=== PATIENT | male | born 1970 | race Asian ===

== ENCOUNTER 2016-07-06 08:00 | Outpatient (CLI) | payer MEDICAID | END 2016-07-06 23:59 | disposition home or self-care (01) | DX: B89 Unspecified parasitic disease (principal) ==

== ENCOUNTER 2018-09-17 08:21 | Outpatient (CLI) | payer OTHER ==
[2018-09-17 10:39] LABS: ALBUMIN 4.4 g/dL (3.2-5.5); ALBUMIN/GLOBULIN RATIO 1.5 (1.0-2.2); ALKALINE PHOSPHATASE 56 IU/L (42-121); ALT ALANINE AMINOTRANSFERASE 16 IU/L (10-60); AST ASPARTATE AMINOTRANSFERASE 16 IU/L (10-42); BILIRUBIN,TOTAL 0.7 mg/dL (0.2-1.0); BUN - BLOOD UREA NITROGEN 17 mg/dL (6-20); CALCIUM 9.5 mg/dL (8.5-10.3); CARBON DIOXIDE - CO2 30 mmol/L (21-32); CHLORIDE 101 mmol/L (101-111); CHOL/HDL RATIO 5.8 (<5.0); CHOLESTEROL 268 mg/dL; CREATININE 1.3 mg/dL (0.6-1.2); GFR - MDRD 59 (>89); GLUCOSE 98 mg/dL (70-100); HDL CHOLESTEROL 46 mg/dL; LDL CHOLESTEROL,CALCULATED 177 mg/dL; LDL/HDL RATIO 3.8 (<3.6); SODIUM 141 mmol/L (135-145); TOTAL PROTEIN 7.3 g/dL (6.7-8.2); VLDL CHOLESTEROL 45 mg/dL
== END 2018-09-17 08:22 | disposition home or self-care (01) ==
LOC: LAB.F 08:21
PROVIDERS: ATTEND Internal Medicine
DX: E78.5 Hyperlipidemia, unspecified (principal); F32.9 Major depressive disorder, single episode, unspecified
CPT/HCPCS: 36415; 80053; 80061; 83721; 84443

== ENCOUNTER 2019-05-27 12:06 | Emergency (ER) | payer MEDICAID, OTHER ==
[2019-05-27 12:30] LABS: BASOPHILS % (AUTO) 0.6 %; EOSINOPHILS # (AUTO) 0.1 10^3/uL (0.0-0.7); EOSINOPHILS % (AUTO) 1.1 %; HGB - HEMOGLOBIN 13.7 g/dL (14.0-18.0); LYMPHOCYTES # (AUTO) 1.4 10^3/uL (1.5-3.5); LYMPHOCYTES % (AUTO) 26.2 %; MEAN CORPUSCULAR HEMOGLOBIN 31.1 pg (27.0-31.0); MEAN CORPUSCULAR HGB CONC 33.5 g/dL (32.0-36.0); MONOCYTES # (AUTO) 0.4 10^3/uL (0.0-1.0); MONOCYTES % (AUTO) 7.2 %; NEUTROPHILS # (AUTO) 3.5 10^3/uL (1.5-6.6); NEUTROPHILS % (AUTO) 64.7 %; PLT - PLATELET COUNT 202 10^3/uL (130-450); RED CELL DISTRIBUTION WIDTH 12.2 % (12.0-15.0); WHITE BLOOD COUNT 5.4 x10^3/uL (4.8-10.8)
[2019-05-27 12:43] LABS: ALBUMIN 4.3 g/dL (3.2-5.5); ALBUMIN/GLOBULIN RATIO 1.7 (1.0-2.2); BILIRUBIN,TOTAL 0.7 mg/dL (0.2-1.0); CALCIUM 9.4 mg/dL (8.5-10.3); CREATININE 1.1 mg/dL (0.6-1.2); TOTAL PROTEIN 6.9 g/dL (6.7-8.2)
--- NOTE | 2019-05-27 13:30 | ED Physician Documentation ---
History of Present Illness - Stated complaint Stated Complaint: ABD PX - Chief complaint Chief Complaint: Abd Pain - History obtained from History obtained from: Patient - History of Present Illness Timing: Chronic Pain level max: 0 Pain level now: 0 - Additonal information Additional information: 48-year-old male states that he has had an umbilical hernia for "quite some time". He states that Last night the area became swollen and unable to reduce. This lasted for about 2 hours. No vomiting. He is asymptomatic now. The hernia has self reduced. Nothing makes it better or worse Review of Systems Constitutional: denies: Fever, Chills GI: denies: Vomiting, Diarrhea, Hematemesis, Bloody / black stool Skin: denies: Rash Musculoskeletal: denies: Neck pain, Back pain Neurologic: denies: Headache PD PAST MEDICAL HISTORY - Past Medical History Past Medical History: No - Past Surgical History Past Surgical History: No - Allergies Allergies/Adverse Reactions: Allergies Allergy/AdvReac Type Severity Reaction Status Date / Time No Known Drug Allergies Allergy Verified 05/27/19 12:11 - Social History Does the pt smoke?: No Smoking Status: Never smoker Does the pt drink ETOH?: Yes Does the pt have substance abuse?: No - POLST Patient has POLST: No PD ED PE NORMAL - Vitals Vital signs reviewed: Yes - General General: Alert and oriented X 3, No acute distress - HEENT HEENT: Moist mucous membranes - Neck Neck: Supple, no meningeal sign - Cardiac Cardiac: RRR - Respiratory Respiratory: No respiratory distress, Clear bilaterally - Abdomen Abdomen: Soft, Non tender, Non distended, Other (Small umbilical hernia, easily reducible) - Derm Derm: Warm and dry - Neuro Neuro: Alert and oriented X 3 - Psych Psych: Normal mood, Normal affect Results - Vitals Vitals: Vital Signs - 24 hr 05/27/19 12:11 Temperature 36.5 C Heart Rate 69 Respiratory 14 Rate Blood Pressure 136/74 H O2 Saturation 100 Oxygen O2 Source Room air - Labs Labs: Laboratory Tests 05/27/19 05/27/19 12:27 12:27 WBC 5.4 RBC 4.40 L Hgb 13.7 L Hct 40.9 L MCV 93.0 MCH 31.1 H MCHC 33.5 RDW 12.2 Plt Count 202 MPV 9.0 Neut # (Auto) 3.5 Lymph # (Auto) 1.4 L Woods # (Auto) 0.4 Eos # (Auto) 0.1 Baso # (Auto) 0.0 Absolute Nucleated RBC 0.00 Nucleated RBC % 0.0 Sodium 140 Potassium 3.9 Chloride 101 Carbon Dioxide 29 Anion Gap 10.0 BUN 20 Creatinine 1.1 Estimated GFR (MDRD) 72 L Glucose 94 Calcium 9.4 Total Bilirubin 0.7 AST 18 ALT 22 Alkaline Phosphatase 70 Total Protein 6.9 Albumin 4.3 Globulin 2.6 Albumin/Globulin Ratio 1.7 Lipase 26 PD MEDICAL DECISION MAKING - ED course Complexity details: considered differential, d/w patient ED course: Patient with a small umbilical hernia. Currently not incarcerated. We will have him follow-up with surgery to discuss operative repair. Patient is a symptomatic. Patient counseled regarding signs and symptoms for which I believe and urgent re-evaluation would be necessary. Patient with good understanding of and agreement to plan and is comfortable going home at this time This document was made in part using voice recognition software. While efforts are made to proofread this document, sound alike and grammatical errors may occur. Departure - Departure Disposition: 01 Home, Self Care Clinical Impression: Umbilical hernia Qualifiers: Obstruction and gangrene presence: without obstruction or gangrene Qualified Code(s): K42.9 - Umbilical hernia without obstruction or gangrene Condition: Good Instructions: Hernia Follow-Up: Gaby Rahman ND [Primary Care Provider] - Garfield Anderson MD [Credentialed Staff Provider] - Abran Givens MD [Provider Admit Priv/Credential] - Comments: You have an umbilical hernia. Return if you worsen including worsening pain or the hernia does not go back in on its own. Return especially for vomiting as well. Follow-up with the surgeon to discuss operative repair.
[2019-05-27 13:35] LABS: BILIRUBIN,URINE NEGATIVE (NEGATIVE); GLUCOSE, URINE (UA) NEGATIVE (NEGATIVE); KETONES,URINE (UA) TRACE mg/dL (NEGATIVE); LEUKOCYTE ESTERASE, URINE NEGATIVE (NEGATIVE); NITRITE,URINE NEGATIVE (NEGATIVE); OCCULT BLOOD,URINE NEGATIVE (NEGATIVE); PH,URINE 5.5 PH (5.0-7.5); PROTEIN,URINE NEGATIVE (NEGATIVE); UROBILINOGEN,URINE 0.2 (NORMAL) E.U./dL (NORMAL)
[2019-05-27 13:37] LABS: CLARITY,URINE CLEAR (CLEAR)
[2019-05-27 13:47] VITALS: BP 136/80
== END 2019-05-27 13:47 | disposition home or self-care (01) ==
LOC: ED 12:06
DX: K42.9 Umbilical hernia without obstruction or gangrene (principal)
CPT/HCPCS: 36415; 80053; 81001; 81003; 83690; 85025; 87086; 99283; 99284

== ENCOUNTER 2019-09-14 09:04 | Outpatient (CLI) | payer MEDICAID | END 2019-09-14 09:05 | disposition home or self-care (01) | LOC: LAB 09:04 | PROVIDERS: ATTEND Internal Medicine Cardiovascular Disease | DX: I25.10 Atherosclerotic heart disease of native coronary artery without angina pectoris (principal); Z11.59 Encounter for screening for other viral diseases | CPT/HCPCS: 81599 ==

== ENCOUNTER 2019-10-11 12:23 | Outpatient (CLI) | payer MEDICAID | END 2019-10-11 12:24 | disposition home or self-care (01) | LOC: LAB.S 12:23 | PROVIDERS: ATTEND Surgery | DX: Z01.818 Encounter for other preprocedural examination (principal); K42.9 Umbilical hernia without obstruction or gangrene; Z20.828 Contact with and (suspected) exposure to other viral communicable diseases ==

== ENCOUNTER 2019-10-13 08:41 | Day surgery (SDC) | payer MEDICAID ==
[2019-10-13] MEDS ORDERED: ONDANSETRON 4 MG/2 ML VIAL IVP ONE (08:42)
[2019-10-13] MEDS ORDERED: PROPOFOL 200 MG/20 ML VIAL IVP ONE (08:42)
[2019-10-13] MEDS ORDERED: MIDAZOLAM 2 MG/2 ML VIAL IVP ONE (08:42)
[2019-10-13] MEDS ORDERED: KETOROLAC 30 MG/ML VIAL IVP ONE (08:42)
[2019-10-13] MEDS ORDERED: fentaNYL 100 MCG/2 ML VIAL IVP ONE (08:42)
[2019-10-13] MEDS ORDERED: LACTATED RINGERS 1,000 ML IV ONE ×2 (08:44→12:23)
[2019-10-13] MEDS ORDERED: CEFAZOLIN SODIUM IN 0.9 % NACL 2 GM/100 ML BAG IV ONE (08:52)
--- NOTE | 2019-10-13 09:30 | ANESTHESIA ---
Pre-Anesthesia VS, & Labs - Diagnosis umbilical hernia - Procedure umbilical hernia repair Vital Signs: Temp Pulse Resp BP Pulse Ox 36.6 C 78 17 151/93 H 100 10/13/19 08:58 10/13/19 08:58 10/13/19 08:58 10/13/19 08:58 10/13/19 08:58 Height 6 ft Weight (kg) 80 kg Body Mass Index 25.2 - NPO >8 hours Home Medications and Allergies Home Medications: Ambulatory Orders No Known Home Medications 09/30/19 No Known Home Medications 09/30/19 Allergies/Adverse Reactions: Allergies Allergy/AdvReac Type Severity Reaction Status Date / Time No Known Drug Allergies Allergy Verified 05/27/19 12:11 Anes History & Medical History - Anesthetic History Anesthesia Complications: reports: No previous complications Family history of Anesthesia Complications: Denies - Medical History Cardiovascular: reports: None Pulmonary: reports: None Gastrointestinal: reports: GERD Urinary: reports: None Musculoskeletal: reports: None Endocrine/Autoimmune: reports: None Skin: reports: None Smoking Status: Never smoker Exam General: Alert Dental: WNL Mouth Opening: Greater than 4 Fingerbreadths Neck Mobility: Normal Mallampati classification: I Respiratory: Lungs clear, Normal breath sounds Cardiovascular: Regular rate, Normal S1, Normal S2, No murmurs Mental/Cognitive Status: Alert/Oriented X3 Plan Anesthesia Type: General, MAC Consent for Procedure(s) Verified and Reviewed: Yes Code Status: Attempt Resuscitation ASA classification: 2-Mild systemic disease Is this case an emergency?: No
[2019-10-13] MEDS ORDERED: BUPIVACAINE 0.25% PF 30 ML VIAL SUBQ ONE ×3 (10:16)
[2019-10-13] MEDS ORDERED: LIDOCAINE 1% 50 ML MDV SUBQ ONE (10:16)
[2019-10-13] MEDS ORDERED: BUPIVACAINE 0.25% PF 30 ML VIAL ONE (11:17)
[2019-10-13] MEDS ORDERED: HYDROcod/ACETAM 5/325 MG TABLET PO PRN (12:00)
[2019-10-13] MEDS ORDERED: HYDROcod/ACETAM 5/325 MG TABLET ONE (12:58)
[2019-10-13 13:16] VITALS: BP 136/91
--- NOTE | 2019-10-13 14:07 | OPERATIVE REPORT ---
DATE OF SERVICE: 10/13/2019 Physician: Tung Aj MD PREOPERATIVE DIAGNOSIS: Large umbilical hernia. POSTOPERATIVE DIAGNOSIS: Large umbilical hernia. PROCEDURE PERFORMED 1. Umbilical hernia repair with mesh. 2. Preperitoneal dissection for mesh placement. PROSTHETICS: A 2.5 inch tall x 2 to 1.5 inch wide polypropylene mesh. SURGEON: Tung Aj MD SENIOR MEDICAL TRANSCRIPTIONIST: None. ANESTHESIA 1. Laryngeal mask anesthesia. 2. Local anesthesia with Marcaine. COMPLICATIONS: None. SPECIMENS: None. ESTIMATED BLOOD LOSS: None. DRAINS: None. FINDINGS: 4 cm fascial defect. INDICATIONS FOR PROCEDURE: The patient is a 48-year-old gentleman with a very symptomatic large umbi lical hernia. He presents for open repair with mesh. Risks discussed, alternatives discussed. All questions answered and consent obtained. DESCRIPTION OF PROCEDURE: The patient was properly identified, brought to the operating room and gretel aaron in supine position. He voided prior to surgery. Laryngeal mask anesthesia was induced. Sequent ial compression devices were placed. He was prepped and draped in a sterile fashion, given preoperat elizabeth antibiotics. Local anesthetic was given throughout the procedure. A vertical 2 cm incision was made cephalad of the umbilicus and extended left lateral of the umbilicus. Dissection proceeded raven ply. He had approximately 3 x 4 cm of preperitoneal adipose tissue. This was carefully mobilized aw ay from the surrounding subcutaneous tissue and released at the fascial defect edge. The preperitone al space was then carefully developed largely with blunt dissection. A 2.5 inch wide cephalad x 1 in ch wide caudad x 2.5 inch tall polypropylene mesh was placed preperitoneal retrorectus and secured wi th 9 interrupted 0 Ethibond sutures. The fascia was then closed over the mesh with additional 0 Ethi barakat sutures. The umbilical skin was tacked back down to fascia with interrupted 2-0 Vicryl. Subcut aneous tissue was closed with interrupted 3-0 Vicryl suture. Buried interrupted subdermal 3-0 Vicryl sutures were then placed. Skin was closed with a running 4-0 Monocryl subcuticular suture. A dress ing was applied. He tolerated the procedure very well. TD: 10/13/2019 13:44
== END 2019-10-13 08:42 | disposition home or self-care (01) ==
LOC: SDS 08:41
PROVIDERS: ATTEND Surgery
DX: K42.9 Umbilical hernia without obstruction or gangrene (principal)
CPT/HCPCS: 49585; A9270; C1781; J0690; J7120